=== PATIENT | female | born 1940 | race Caucasian/White ===

== ENCOUNTER 2024-10-26 13:28 | Emergency (ER) | payer OTHER ==
[~2024-10-26] VITALS: Ht 165.1 cm; Wt 51.7 kg
[2024-10-26] MEDS ORDERED: ONDANSETRON HCL 2 MG/ML VIAL IV ONE (15:15)
[2024-10-26] MEDS ORDERED: 0.9 % SODIUM CHLORIDE 1,000 ML IV ONE (15:15)
[2024-10-26] MEDS ORDERED: FAMOtidine 10 MG/ML (4ML VIAL) IV ONE (15:15)
[2024-10-26 16:05] LABS: HEMOGLOBIN 11.6 g/dL (12.0-15.00); MEAN CELL VOLUME 85.2 fL (80.00-100.00); MEAN CORPUSCULAR HEMOGLOBIN 28.3 pg (27.00-32.0); MEAN CORPUSCULAR HGB CONC 33.2 g/dl (32.0-36.0); PLATELET COUNT 225 K/uL (150-450); RED BLOOD COUNT 4.11 M/uL (4.00-6.00); RED CELL DISTRIBUTION WIDTH 13.1 % (11.5-14.5)
[2024-10-26] MEDS ORDERED: KETOROLAC TROMETHAMINE 30 MG VIAL IU ONE (16:15)
[2024-10-26 16:24] LABS: INR 1.06; PARTIAL THROMBOPLASTIN TIME 26.1 SECONDS (22.0-34.0); PROTHROMBIN TIME 11.5 SECONDS (9.0-11.5)
[2024-10-26 16:36] LABS: ALKALINE PHOSPHATASE 61 U/L (50-136); ANION GAP 12 (10.0-20.0); AST/SGOT 13 U/L (15-37); BILIRUBIN TOTAL 0.94 mg/dL (0.3-1.2); BLOOD UREA NITROGEN 13 mg/dL (7-18); BUN CREA RATIO 10 (7.0-25.0); CALCIUM 9.2 mg/dL (8.5-10.1); CARBON DIOXIDE 28 mEq/L (21-32); CHLORIDE 103 mmol/L (98-107); CREATININE SERUM 1.32 mg/dL (0.55-1.02); GFR 38.53; GLOBULINA 3.6 G/DL (2.4-3.5); GLUCOSE FASTING 104 mg/dL (65-100); OSMOLALITY SERUM 280 MOSM/KG (275-295); POTASSIUM 3.35 mEq/L (3.5-5.1); SODIUM 140 mmol/L (136-145); TOTAL PROTEIN 7.6 gm/dL (6.4-8.2)
[2024-10-26 16:42] LABS: ALT/SGPT < 6 U/L (12-78)
[2024-10-26 17:00] LABS: URINE APPEARANCE Clear; URINE BILIRRUBIN Negative (NEGATIVE); URINE BLOOD Negative; URINE COLOR Dark Yellow; URINE GLUCOSE Negative (NEGATIVE); URINE LEUKOCYTE Negative; URINE NITRATE Negative; URINE PROTEIN Trace (NEGATIVE); URINE UROBILINOGEN 0.2 E.U./dl
[2024-10-26 17:02] LABS: URINE BACTERIA 971.8 uL (0.0-1933); URINE EPITHELIAL CELLS 4.1 uL (0.0-38.8); URINE RBC 6.3 uL (0.0-20.8); URINE WBC 2.8 uL (0.0-23.2)
[2024-10-26 17:11] LABS: URINE CAST 0.44 uL (0.0-1.40); URINE KETONE 40 (NEGATIVE)
[2024-10-26] MEDS ORDERED: MAG HYDROX/ALUMINUM HYD/SIMETH 30 ML BLIST.PACK PO ONE (21:15)
== END 2024-10-26 21:24 | disposition home or self-care (01) ==
LOC: ER 13:31
PROVIDERS: General Practice
DX: R10.32 Left lower quadrant pain (principal); E86.0 Dehydration; E87.6 Hypokalemia; J84.10 Pulmonary fibrosis, unspecified; I31.39 Other pericardial effusion (noninflammatory); I10 Essential (primary) hypertension; Z85.3 Personal history of malignant neoplasm of breast
CPT/HCPCS: 36415; 74177; 96365; 96366; 99284; J1885; J2405; J3490; Q9965

== ENCOUNTER 2024-11-02 18:05 | Inpatient (IN) | payer OTHER ==
[~2024-11-02] VITALS: Ht 165.1 cm; Wt 51.7 kg
[2024-11-02] MEDS ORDERED: PROTONIX40 MG (18:19)
[2024-11-02] MEDS ORDERED: ATACAND4 MG (18:20)
[2024-11-02] MEDS ORDERED: TRAZODONE HCL50 MG (18:20)
[2024-11-02] MEDS ORDERED: LEVOTHYROXINE25 MCG (18:20)
[2024-11-02] MEDS ORDERED: HYDROCHLOROTH12.5 M2 (18:20)
[2024-11-02] MEDS ORDERED: WELLBUTRIN SR100 MG (18:20)
[2024-11-02] MEDS ORDERED: CARBIDOPA25 MG (18:20)
--- NOTE | 2024-11-02 18:21 | NUR ---
SE RECIBE PACIENTE ALERTA Y ORIENTADA X 3 ESFERAS EN AMBULANCIA LA CUAL EN COMPANIA DE CUIDADOR[place] LA CUAL INDICA QUE ESTABA BANANDO LA PACIENTE Y QUE ESTA SUFRIO UN DESMAYO. REFIERE QUE PACIENTE PERDIO LA CONSCIENCIA Y SUFRIO RELAJACION DE ESFINTERES.
[2024-11-02] MEDS ORDERED: 0.9 % SODIUM CHLORIDE 1,000 ML IV SCH (18:45)
[2024-11-02] MEDS ORDERED: MECLIZINE HCL 25 MG TABLET PO ONE (18:45)
--- NOTE | 2024-11-02 18:54 | NUR ---
SE ORIENTA A PACIENTE Y FAMILIAR SOBRE TX MEDICO, REFIERE ENTENDER. SE REALIZAN MUESTRAS DE LABORATORIO BAJO MEDIDAS ASEPTICAS. SE ADMINISTRA IV'S Y MEDICAMENTOS YONATHAN ORDEN MEDICA. SE COORDINA FCO X. PENDIENTE RE-EVALUACION MEDICA.
[2024-11-02 19:17] LABS: HEMATOCRIT 33.7 % (36.0-45.00); HEMOGLOBIN 10.9 g/dL (12.0-15.00); MEAN CELL VOLUME 85.1 fL (80.00-100.00); MEAN CORPUSCULAR HEMOGLOBIN 27.6 pg (27.00-32.0); MEAN CORPUSCULAR HGB CONC 32.4 g/dl (32.0-36.0); PLATELET COUNT 170 K/uL (150-450); RED BLOOD COUNT 3.96 M/uL (4.00-6.00); RED CELL DISTRIBUTION WIDTH 13.1 % (11.5-14.5)
[2024-11-02 19:43] LABS: ALBUMIN 3.5 gm/dL (3.4-5.0); ALKALINE PHOSPHATASE 50 U/L (50-136); ANION GAP 10 (10.0-20.0); AST/SGOT 10 U/L (15-37); BLOOD UREA NITROGEN 9 mg/dL (7-18); BUN CREA RATIO 7 (7.0-25.0); CALCIUM 8.2 mg/dL (8.5-10.1); CARBON DIOXIDE 26 mEq/L (21-32); CHLORIDE 112 mmol/L (98-107); CREATININE SERUM 1.27 mg/dL (0.55-1.02); GFR 40.28; GLOBULINA 2.8 G/DL (2.4-3.5); GLUCOSE FASTING 110 mg/dL (65-100); OSMOLALITY SERUM 288 MOSM/KG (275-295); POTASSIUM 3.42 mEq/L (3.5-5.1); SODIUM 145 mmol/L (136-145); TOTAL PROTEIN 6.3 gm/dL (6.4-8.2)
[2024-11-02 19:46] LABS: ALT/SGPT < 6 U/L (12-78)
[2024-11-02 19:46] LABS: PH,URINE 6.5 (5.0-8.0); URINE APPEARANCE Cloudy; URINE BILIRRUBIN Negative (NEGATIVE); URINE BLOOD Negative; URINE COLOR Yellow; URINE GLUCOSE Negative (NEGATIVE); URINE KETONE Trace (NEGATIVE); URINE LEUKOCYTE Small; URINE NITRATE Negative; URINE PROTEIN Negative (NEGATIVE)
[2024-11-02 19:47] LABS: URINE CAST 3.09 uL (0.0-1.40); URINE EPITHELIAL CELLS 6.3 uL (0.0-38.8); URINE RBC 17.9 uL (0.0-20.8); URINE WBC 296.9 uL (0.0-23.2)
[2024-11-02 20:08] LABS: URINE BACTERIA > 9821.5 uL (0.0-1933)
[2024-11-02] MEDS ORDERED: ACETAMINOPHEN 500 MG GEL..CAP PO PRN (23:15)
[2024-11-03 01:26] LABS: INR 1.08; PROTHROMBIN TIME 11.7 SECONDS (9.0-11.5)
[2024-11-03 01:30] LABS: PARTIAL THROMBOPLASTIN TIME < 20.0 SECONDS (22.0-34.0)
[2024-11-03 05:40] VITALS: BP 143/65; O2SAT 100
[2024-11-03] MEDS ORDERED: LEVOTHYROXINE SODIUM 25 MCG TABLET PO SCH (06:00)
[2024-11-03 07:03] LABS: MAGNESIUM 1.8 mg/dL (1.8-2.4); TSH 4.48 uIU/mL (0.358-3.74)
[2024-11-03 07:15] VITALS: BP 145/70; O2SAT 100
[2024-11-03] MEDS ORDERED: ATORVASTATIN CALCIUM 40 MG TABLET PO SCH (09:00)
[2024-11-03] MEDS ORDERED: CARBIDOPA/LEVODOPA 25/100 UDTAB PO SCH (09:00)
[2024-11-03] MEDS ORDERED: HYDROCHLOROTHIAZIDE 12.5 MG CAPSULE PO SCH (09:00)
[2024-11-03] MEDS ORDERED: BUPROPION HCL 150 MG TABLET.SA PO SCH (09:00)
[2024-11-03] MEDS ORDERED: ENOXAPARIN SODIUM 40 MG/0.4 ML SYRINGE SUBCUTANEO SCH (09:00)
[2024-11-03] MEDS ORDERED: CANDESARTAN CILEXETIL 8 MG TAB PO SCH (09:00)
[2024-11-03] MEDS ORDERED: CEFTRIAXONE SODIUM 2,000 MG VIAL IV SCH (10:01)
[2024-11-03] MEDS ORDERED: RINGERS SOLUTION,LACTATED 1,000 ML IV SCH (13:30)
[2024-11-03] MEDS ORDERED: ONDANSETRON HCL 4 MG in DEXTROSE 5 % IN WATER 50 ML IV PRN (14:00)
[2024-11-03] MEDS ORDERED: FAMOTIDINE/PF 20 MG/2 ML VIAL IV SCH (14:00)
[2024-11-03] MEDS ORDERED: METOCLOPRAMIDE HCL 10 MG in DEXTROSE 5 % IN WATER 50 ML IV ONE (14:00)
[2024-11-03 15:26] VITALS: BP 138/70; O2SAT 98
[2024-11-03 16:52] VITALS: BP 126/70; O2SAT 99
[2024-11-03 18:12] VITALS: O2SAT 96
[2024-11-03] MEDS ORDERED: POTASSIUM CHLORIDE 20MEQ/100ML H2O PB IV NR (19:00)
[2024-11-03] MEDS ORDERED: TRAZODONE HCL 50 MG TABLET PO SCH (21:00)
[2024-11-03 21:33] VITALS: O2SAT 98
[2024-11-04 00:23] VITALS: BP 143/80; O2SAT 98
[2024-11-04 02:00] VITALS: O2SAT 98
[2024-11-04 05:26] VITALS: O2SAT 100
[2024-11-04 08:48] VITALS: O2SAT 99
[2024-11-04] MEDS ORDERED: ENOXAPARIN SODIUM 30 MG/0.3 ML SYRINGE SUBCUTANEO SCH (09:00)
[2024-11-04 09:03] VITALS: BP 128/78; O2SAT 100
[2024-11-04 11:24] LABS: HEMATOCRIT 29.3 % (36.0-45.00); HEMOGLOBIN 9.9 g/dL (12.0-15.00); MEAN CELL VOLUME 84.3 fL (80.00-100.00); MEAN CORPUSCULAR HEMOGLOBIN 28.4 pg (27.00-32.0); MEAN CORPUSCULAR HGB CONC 33.6 g/dl (32.0-36.0); PLATELET COUNT 157 K/uL (150-450); RED BLOOD COUNT 3.48 M/uL (4.00-6.00); RED CELL DISTRIBUTION WIDTH 13.1 % (11.5-14.5)
[2024-11-04 11:27] LABS: ERYTHROCYTE SEDIMENTATION RATE 1 mm/hr
[2024-11-04 11:55] LABS: ALBUMIN 2.4 gm/dL (3.4-5.0); ALKALINE PHOSPHATASE 42 U/L (50-136); BILIRUBIN TOTAL 0.44 mg/dL (0.3-1.2); BLOOD UREA NITROGEN 4 mg/dL (7-18); BUN CREA RATIO 5 (7.0-25.0); CALCIUM 6.7 mg/dL (8.5-10.1); CARBON DIOXIDE 24 mEq/L (21-32); CREATININE SERUM 0.78 mg/dL (0.55-1.02); GFR 70.71; GLUCOSE FASTING 83 mg/dL (65-100); TOTAL PROTEIN 7.4 gm/dL (6.4-8.2)
[2024-11-04 12:20] LABS: ALT/SGPT < 6 U/L (12-78); ANION GAP 19 (10.0-20.0); AST/SGOT 4 U/L (15-37); C-REACTIVE PROTEIN < 0.29 MG/DL (0.00-0.29); OSMOLALITY SERUM 301 MOSM/KG (275-295)
[2024-11-04 12:21] LABS: CHLORIDE 114 mmol/L (98-107)
[2024-11-04 12:49] LABS: POTASSIUM 2.78 mEq/L (3.5-5.1)
[2024-11-04 12:50] LABS: SODIUM 154 mmol/L (136-145)
[2024-11-04 12:55] LABS: T4 FREE 1.68 NG/ML (0.76-1.46)
[2024-11-04] MEDS ORDERED: CALCIUM CARBONATE/VITAMIN D3 1 TAB TABLET PO SCH (13:00)
[2024-11-04] MEDS ORDERED: DEXTROSE 5 %-0.45 % SOD CHLORD 1,000 ML IV SCH (13:30)
[2024-11-04] MEDS ORDERED: MAGNESIUM SULFATE IN WATER 4 GM/100 ML PIGGYBACK IV STA (13:34)
[2024-11-04 16:30] VITALS: BP 151/76; O2SAT 97
[2024-11-04] MEDS ORDERED: POTASSIUM CHLORIDE IN WATER 40 MEQ/100 ML PIGGYBAG IV SCH (17:00)
[2024-11-04 21:47] LABS: CALCIUM 9.2 mg/dL (8.5-10.1); CREATININE SERUM 1.04 mg/dL (0.55-1.02); GFR 50.73; POTASSIUM 4.29 mEq/L (3.5-5.1)
[2024-11-05 00:30] VITALS: BP 132/79; O2SAT 100
[2024-11-05 09:04] VITALS: BP 164/80; O2SAT 98
[2024-11-05] MEDS ORDERED: ONDANSETRON ODT8 MG PO (13:00)
[2024-11-05] MEDS ORDERED: CANDESARTAN CILE8 MG PO (13:01)
[2024-11-05] MEDS ORDERED: LEVSIN/SL0.125 MG SL (13:01)
[2024-11-05] MEDS ORDERED: NORVASC2.5 M1 PO (13:02)
[2024-11-05] MEDS ORDERED: TRAZODONE HCL50 MG PO (13:02)
[2024-11-05] MEDS ORDERED: WELLBUTRIN SR150 MG PO (13:02)
[2024-11-05] MEDS ORDERED: FAMOTIDINE20 MG PO (13:03)
[2024-11-05] MEDS ORDERED: CALCIUM 500-VI1 EAC6 PO (13:03)
[2024-11-05] MEDS ORDERED: LEVOTHYROXINE25 MCG PO (13:04)
[2024-11-05 13:17] LABS: HEMATOCRIT 34.4 % (36.0-45.00); HEMOGLOBIN 11.4 g/dL (12.0-15.00); MEAN CELL VOLUME 83.7 fL (80.00-100.00); MEAN CORPUSCULAR HEMOGLOBIN 27.7 pg (27.00-32.0); MEAN CORPUSCULAR HGB CONC 33.1 g/dl (32.0-36.0); PLATELET COUNT 194 K/uL (150-450); RED BLOOD COUNT 4.11 M/uL (4.00-6.00); RED CELL DISTRIBUTION WIDTH 13.4 % (11.5-14.5)
[2024-11-05 13:27] LABS: ALBUMIN 3.5 gm/dL (3.4-5.0); ALKALINE PHOSPHATASE 53 U/L (50-136); ANION GAP 9 (10.0-20.0); AST/SGOT 11 U/L (15-37); BILIRUBIN TOTAL 0.48 mg/dL (0.3-1.2); BLOOD UREA NITROGEN 2 mg/dL (7-18); BUN CREA RATIO 2 (7.0-25.0); CALCIUM 8.6 mg/dL (8.5-10.1); CARBON DIOXIDE 32 mEq/L (21-32); CHLORIDE 105 mmol/L (98-107); CREATININE SERUM 0.91 mg/dL (0.55-1.02); GFR 59.18; GLOBULINA 2.8 G/DL (2.4-3.5); GLUCOSE FASTING 107 mg/dL (65-100); OSMOLALITY SERUM 280 MOSM/KG (275-295); PHOSPHOROUS 2.4 mg/dL (2.5-4.9); POTASSIUM 3.57 mEq/L (3.5-5.1); SODIUM 142 mmol/L (136-145); TOTAL PROTEIN 6.3 gm/dL (6.4-8.2)
[2024-11-05 13:31] LABS: ALT/SGPT < 6 U/L (12-78)
[2024-11-05 15:09] LABS: BB 0 % (0); MM 100 % (97-100); c mb 0 % (0-3); macro t 0 % (Not Observed); macro tyoe 2 0 % (Not Observed); total ck 42 U/L (26-161)
[2024-11-05] MEDS ORDERED: CALCIUM CARBONATE/VITAMIN D3 1 TAB TABLET PO SCH (17:00)
[2024-11-06] MEDS ORDERED: FAMOtidine 20 MG TABLET PO SCH (09:00)
== END 2024-11-05 14:46 | disposition home or self-care (01) | DRG 690 ==
LOC: ER 18:05 → SEC-K 23:10 → SURH 11-03 13:55
PROVIDERS: Emergency Medicine; General Practice; ADMIT Internal Medicine; ATTEND Internal Medicine
PROC: B020ZZZ Computerized Tomography (CT Scan) of Brain (ICD-10-PCS; principal; 2024-11-02)
PROC: BW38ZZZ Magnetic Resonance Imaging (MRI) of Head (ICD-10-PCS; 2024-11-02)
PROC: B345ZZZ Ultrasonography of Bilateral Common Carotid Arteries (ICD-10-PCS; 2024-11-02)
PROC: B24BYZZ Ultrasonography of Heart with Aorta using Other Contrast (ICD-10-PCS; 2024-11-02)
PROC: 4A12X4Z Monitoring of Cardiac Electrical Activity, External Approach (ICD-10-PCS; 2024-11-03)
DX: N39.0 Urinary tract infection, site not specified (principal); N17.9 Acute kidney failure, unspecified; E03.9 Hypothyroidism, unspecified; I10 Essential (primary) hypertension; G20.A1 Parkinson's disease without dyskinesia, without mention of fluctuations; G31.9 Degenerative disease of nervous system, unspecified; I25.85 Chronic coronary microvascular dysfunction; R55 Syncope and collapse
CPT/HCPCS: 70544